=== PATIENT | male | born 1985 | race Asian ===

== ENCOUNTER → 2021-08-20 | Outpatient (CLI) | payer MEDICAID ==
[2021-08-20 10:14] LABS: HEMOGLOBIN 13.9 gm/dl (14.0-17.5); RED BLOOD COUNT 4.9 M/UL (4.20-5.50); WHITE BLOOD COUNT 6.1 K/UL (4.5-11.0)
[2021-08-20 10:40] LABS: BUN/CREATININE RATIO 24 (0-10)
== END ==
LOC: LAB 09:34
PROVIDERS: Family Medicine
DX: E03.9 Hypothyroidism, unspecified (principal); Z79.899 Other long term (current) drug therapy
CPT/HCPCS: 36415; 80053; 80061; 84443; 85025; 86376